=== PATIENT | female | born 1980 ===

== ENCOUNTER 2020-09-03 21:43 | Emergency (ER) | payer BC ==
[~2020-09-03 21:43] MED LIST: COLACE 100MG C100 MG PO
[2020-09-04 01:36] LABS: HEMOGLOBIN 13.5 gm/dl (12.3-15.3); RED BLOOD COUNT 4.72 M/UL (4.00-5.10); WHITE BLOOD COUNT 10.4 K/UL (4.5-11.0)
[2020-09-04 01:52] LABS: BUN/CREATININE RATIO 23 (0-10)
[2020-09-04] MEDS ORDERED: IBUPROFEN600 MG PO (03:47)
[2020-09-04] MEDS ORDERED: BENTYL 20MG TAB20 MG PO (03:47)
[2020-09-04] MEDS ORDERED: ZOFRAN4 MG PO (03:47)
== END 2020-09-04 04:06 | disposition home or self-care (01) ==
LOC: ER1 21:43
PROVIDERS: Internal Medicine
DX: R10.84 Generalized abdominal pain (principal)
CPT/HCPCS: 80053; 81001; 83690; 84703; 85025; 96374; 96375; 99284; J2270; J2405; Q9967

== ENCOUNTER 2021-01-19 04:38 | Inpatient (IN) | payer BC ==
[~2021-01-19] VITALS: Ht 165.1 cm; Wt 119.8 kg
[~2021-01-19 04:38] MED LIST changes: +BENTYL 20MG TAB20 MG PO; +IBUPROFEN600 MG PO; +ZOFRAN4 MG PO
[2021-01-19 05:35] LABS: HEMOGLOBIN 13.7 gm/dl (12.3-15.3); RED BLOOD COUNT 4.85 M/UL (4.00-5.10)
[2021-01-19 05:58] LABS: BUN/CREATININE RATIO 17 (0-10)
[2021-01-20 14:19] LABS: HEMOGLOBIN 13.3 gm/dl (12.3-15.3); RED BLOOD COUNT 4.72 M/UL (4.00-5.10); WHITE BLOOD COUNT 5.4 K/UL (4.5-11.0)
[2021-01-20 15:11] LABS: BUN/CREATININE RATIO 24 (0-10)
[2021-01-21 03:01] LABS: HEMOGLOBIN 12.6 gm/dl (12.3-15.3); RED BLOOD COUNT 4.55 M/UL (4.00-5.10); WHITE BLOOD COUNT 4.9 K/UL (4.5-11.0)
[2021-01-21 03:27] LABS: BUN/CREATININE RATIO 22 (0-10)
[2021-01-22 07:06] LABS: RED BLOOD COUNT 4.53 M/UL (4.00-5.10); WHITE BLOOD COUNT 5.3 K/UL (4.5-11.0)
[2021-01-22 08:16] LABS: BUN/CREATININE RATIO 22 (0-10)
[2021-01-23 11:40] LABS: HEMOGLOBIN 12.7 gm/dl (12.3-15.3); RED BLOOD COUNT 4.59 M/UL (4.00-5.10); WHITE BLOOD COUNT 6.6 K/UL (4.5-11.0)
[2021-01-23 12:33] LABS: BUN/CREATININE RATIO 25 (0-10)
[2021-01-24 05:25] LABS: RED BLOOD COUNT 4.68 M/UL (4.00-5.10); WHITE BLOOD COUNT 7.1 K/UL (4.5-11.0)
[2021-01-24 05:45] LABS: BUN/CREATININE RATIO 24 (0-10)
[2021-01-24] MEDS ORDERED: ADVIL200 MG PO (11:28)
[2021-01-24] MEDS ORDERED: METFORMIN ER G500 MG PO (11:28)
[2021-01-24] MEDS ORDERED: GUAIFENESIN200 MG PO (11:28)
== END 2021-01-24 17:53 | disposition home or self-care (01) | DRG 177 ==
LOC: ER1 04:38 → MED SURG 4 09:33 → CDU 09:33 → PROG CARE 17:06 → MED SURG 4 01-22 20:35
PROVIDERS: Physician Assistant; ADMIT Internal Medicine
PROC: XW033E5 Introduction of Remdesivir Anti-infective into Peripheral Vein, Percutaneous Approach, New Technology Group 5 (ICD-10-PCS; principal; 2021-01-19)
PROC: 3E0333Z Introduction of Anti-inflammatory into Peripheral Vein, Percutaneous Approach (ICD-10-PCS; 2021-01-19)
PROC: 8E0ZXY6 Isolation (ICD-10-PCS; 2021-01-19)
DX: U07.1 COVID-19 (principal); J12.82 Pneumonia due to coronavirus disease 2019; J96.01 Acute respiratory failure with hypoxia; J98.11 Atelectasis; Z68.41 Body mass index [BMI] 40.0-44.9, adult; G43.909 Migraine, unspecified, not intractable, without status migrainosus; E66.9 Obesity, unspecified; T38.0X5A Adverse effect of glucocorticoids and synthetic analogues, initial encounter; G47.33 Obstructive sleep apnea (adult) (pediatric); E11.65 Type 2 diabetes mellitus with hyperglycemia; Z98.890 Other specified postprocedural states; Z83.3 Family history of diabetes mellitus; Z79.84 Long term (current) use of oral hypoglycemic drugs; Z82.49 Family history of ischemic heart disease and other diseases of the circulatory system
CPT/HCPCS: 36415; 36600; 71045; 80053; 82803; 82962; 83036; 83735; 84100; 84703; 85025; 94640; 94664; 94760; 99285; J1100; J1650; J7030; U0002